=== PATIENT | male | born 1975 | race Caucasian/White ===

== ENCOUNTER 2021-02-01 10:02 | Inpatient (IN) ==
[2021-02-01 10:10] VITALS: BMI 36.9
[2021-02-01] MEDS ORDERED: NS 1,000 ML IV 1,000 ML IV ONE ×2 (10:16→12:09)
[2021-02-01] MEDS ORDERED: NovoLIN R (or HumuLIN R) ONE ×2 (10:20→10:47)
--- NOTE | 2021-02-01 10:34 | DR.GENAD ---
HPI Time Seen Time Seen by Provider: 02/01/21 10:16 PCP Primary Care Physician: Complaint/Symptoms Chief Complaint Doctors Comments: 45 y/o male not feeling well for the past few weeks. Having elevated pulse, BP and glucose. Has been nauseous, no vomiting or diarrhea. Having generalized weakness. Denies pain. Saw an MD 1st time 5 days ago. Was started on Losartan and Metformin. Labs were pending from that visit. Has been compliant with meds. Denies chest pain, headache, dyspnea. No urinary complaints. Chief Complaint:: PT C/O ELEAVTED BLOOD PRESSURE, HEART RATE, & BLOOD SUGAR X1 WEEK.PT ALSO C/O NAUSEA. PT HAS HX OF HTN & DM & HAS TAKEN MEDS THIS AM. COVID-19 Coronavirus risk:travel/contact w/high risk person: No Has patient experienced Coronavirus symptoms: No Nurses notes reviewed Nurses Notes Review: Yes Source History Provided: Patient Mode of Arrival Mode of Arrival: Ambulatory Timing Onset of Chief Complaint: 01/25/21 PMH PMH Past Medical History: Yes Past Medical History: Diabetes and Hypertension Past Surgical History: No Family History History of Family Medical Conditions: Yes Family Medical History: Diabetes Mellitus and Hypertension Travel Risk Coronavirus risk:travel/contact w/high risk person: No Has patient experienced Coronavirus symptoms: No Infectious screening Have you traveled outside the country in the last 6 months?: No Isolation: Standard ROS Review of Systems Constitutional: Weakness Eyes: No Symptoms Reported ENTM: No Symptoms Reported Respiratoy: No Symptoms Reported Cardiovascular: No Symptoms Reported Gastrointestinal/Abdominal: Nausea Genitourinary: No Symptoms Reported Neurological: Weakness Musculoskeletal: No Symptoms Reported Integumentary: No Symptoms Reported Hematologic/Lymphatic: No Symptoms Reported Psychiatric: No Symptoms Reported All Other Systems: Reviewed and Negative PE Vital Signs Vitals: Temperature 98.5 F Pulse Rate [Left Radial] 113 Pulse Rate 111 Respiratory Rate 17 Blood Pressure [Left Arm] 127/60 Blood Pressure 131/76 O2 Sat by Pulse Oximetry 99 General Limitations: No Limitations General Appearance: Alert and In No Apparent Distress Head Head Exam: Normal Inspection, Atraumatic and Normocephalic Eyes Eye exam: Normal Appearance, PERRL and EOMI ENT ENT Exam: Normal Exam Throat Exam: Normal Inspection Neck Neck Exam: Normal Inspection and Full ROM Chest Chest Inspection: Normal Inspection Respiratory Respiratory Exam: Normal Lung Sounds Bilat; negative Accessory Muscle Use and Respiratory Distress Respiratory Exam: Bilateral: Clear to Auscultation Cardiovascular Cardiovascular Exam: Regular Rate, Normal Rhythm and Normal Heart Sounds Abdominal Exam Abdominal Exam: Normal Inspection, Normal Bowel Sounds and Soft; negative Tenderness Extremities Extremities Exam: Normal Inspection and Full ROM; negative Tenderness and Edema Back Back Exam: Normal Inspection Neurologic Neurological Exam: Alert, Oriented X3 and CN II-XII Intact; negative Motor Sensory Deficit Psychiatric Psychiatric Exam: Normal Affect Skin Skin Exam: Warm and Dry MDM Differential Diagnosis Differential Diagnosis: dehydration, electrolyte abnormalities, DKA, HHNK, SVT COURSE Treatment Treatment: 45 y/o male, ill past week. Pulse, BP and glucose elevated. Diagnosed with HTN and DM 5 days ago. No obvious cause for dehydration. Pt given IV fluids. Bedside glucose 543. Given regular insulin, 8 U IV. 1239 - CBC acceptable. CMP show low bicarb at 12.3. ABG obtained, pH low at 7.23, pCO2 24. Urine spilling 3+ glucose, 4+ ketones. Clinically with DKA. Given additional IV fluids, recommend admission. Discussed with Dr Johnson, will admit and place on an insulin drip. ROR Labs Reviewed Laboratory Results Reviewed?: Yes Result Diagrams: 02/01/21 10:26 02/01/21 10:26 Laboratory: WBC 11.7 X10^3/uL (3.6-10.0) H 02/01/21 10:26 RBC 6.11 X10^6/uL (4.7-6.0) H 02/01/21 10:26 Hgb 17.3 g/dL (13.5-18.0) 02/01/21 10:26 Hct 52.1 % (42.0-54.0) 02/01/21 10:26 MCV 85.3 fL (80.0-100.0) 02/01/21 10:26 MCH 28.3 pg (27.0-34.0) 02/01/21 10:26 MCHC 33.1 g/dL (33.0-35.0) 02/01/21 10:26 RDW 17.0 % (11.6-16.5) H 02/01/21 10:26 Plt Count 266 X10^3/uL (150.0-450.0) 02/01/21 10:26 MPV 9.6 fL (7.4-11.0) 02/01/21 10: Neut % (Auto) 77.4 % (42.0-75.0) H 02/01/21 10:26 Lymph % (Auto) 15.0 % (21.0-51.0) L 02/01/21 10:26 [place] % (Auto) 7.1 % (0.0-13.0) 02/01/21 10:26 Eos % (Auto) 0.1 % (0.9-2.9) L 02/01/21 10: Baso % (Auto) 0.4 % (0.2-1.0) 02/01/21 10: Neut # (Auto) 9.0 x10^3/uL (2.2-4.8) H 02/01/21 10: Lymph # (Auto) 1.8 X10^3/uL (1.3-2.9) 02/01/21 10: [place] # (Auto) 0.8 x10^3/uL (0.3-0.8) 02/01/21 10: Eos # (Auto) 0.0 x10^3/uL (0.0-0.2) 02/01/21 10:26 Baso # (Auto) 0.0 X10^3/uL (0.0-0.1) 02/01/21 10: Absolute Nucleated RBC 0.1 /100WBC 02/01/21 10:26 Sample Site Rr 02/01/21 11:39 ABG pH 7.230 (7.35-7.45) L 02/01/21 11:39 ABG pCO2 24.0 mmHg (35.0-45.0) L 02/01/21 11:39 ABG pO2 110.0 mmHg (80.0-100.0) H 02/01/21 11:39 ABG HCO3 10.1 mmol/L (22-26) L* 02/01/21 11:39 ABG O2 Saturation 97.0 % (90-100) 02/01/21 11:39 ABG Base Excess -15.7 mmol/L (-2.0-2.0) L 02/01/21 11:39 Chato Test Pos 02/01/21 11:39 A-a Gradient 10.0 mmHg 02/01/21 11:39 FiO2 21.0 02/01/21 11:39 Blood Gas Comments Sandhya well cb 02/01/21 11:39 Sodium 143 mmol/L (136-145) 02/01/21 10:26 Corrected Sodium 154 mmol/L (136-145) H 02/01/21 10:26 Potassium 4.4 mmol/L (3.5-5.1) 02/01/21 10:26 Chloride 107 mmol/L (98-107) 02/01/21 10:26 Carbon Dioxide 12.3 mmol/L (21-32) L* 02/01/21 10:26 BUN 16 mg/dL (7-18) 02/01/21 10:26 Creatinine 1.54 mg/dL (0.70-1.30) H 02/01/21 10:26 Est GFR (MDRD) Af Amer > 60 (>60) 02/01/21 10:26 Est GFR (MDRD) Non-Af 52 (>60) L 02/01/21 10:26 Glucose 563 mg/dL (65-99) H* 02/01/21 10:26 POC Glucose (mg/dL) 543 mg/dL (65-99) H* 02/01/21 10:30 Calcium 10.1 mg/dL (8.5-10.1) 02/01/21 10:26 Corrected Calcium TNP 02/01/21 10:26 Total Bilirubin 0.50 mg/dL (0.2-1.0) 02/01/21 10:26 AST < 6 Units/L (15-37) L 02/01/21 10:26 ALT 13 Units/L (12-78) 02/01/21 10:26 Alkaline Phosphatase 100 Units/L (46-116) 02/01/21 10:26 Creatine Kinase 53 Units/L (39-308) 02/01/21 10:26 CK-MB (CK-2) < 1.0 ng/mL (0-4.0) 02/01/21 10:26 CK/CKMB % Calc 1.9 % (<4) 02/01/21 10:26 Troponin I < 0.02 ng/mL (0-1.5) 02/01/21 10:26 Total Protein 8.4 g/dL (6.4-8.2) H 02/01/21 10:26 Albumin 3.9 g/dL (3.4-5.0) 02/01/21 10:26 Globulin 4.5 g/dL (2.5-4.5) 02/01/21 10:26 Albumin/Globulin Ratio 0.9 Ratio (1.1-2.1) L 02/01/21 10:26 Specimen Type Clean catch urine 02/01/21 11:36 Urine Color Yellow (YELLOW) 02/01/21 11:36 Urine Appearance Hazy (CLEAR) 02/01/21 11:36 Urine pH 6.0 (5.0 - 8.0) 02/01/21 11:36 Ur Specific [place] 1.025 (1.000-1.030) 02/01/21 11:36 Urine Protein 3+ (NEGATIVE) 02/01/21 11:36 Urine Glucose (UA) 4+ (NEGATIVE) 02/01/21 11:36 Urine Ketones 4+ (NEGATIVE) 02/01/21 11:36 Urine Occult Blood 3+ (NEGATIVE) 02/01/21 11:36 Urine Nitrite Negative (NEGATIVE) 02/01/21 11:36 Urine Bilirubin Negative (NEGATIVE) 02/01/21 11:36 Urine Urobilinogen Normal (NORMAL) 02/01/21 11:36 Ur Leukocyte Esterase Negative (NEGATIVE) 02/01/21 11:36 Urine RBC 0-2 /HPF (0-3) 02/01/21 11:36 Urine WBC 0-2 /HPF (0-5) 02/01/21 11:36 Ur Squamous Epith Cells Few /HPF (NEGATIVE) 02/01/21 11:36 Urine Bacteria Trace /HPF (NEGATIVE) 02/01/21 11:36 Hyaline Casts Few /LPF (NEGATIVE) 02/01/21 11:36 Urine Mucus Few /HPF (NEGATIVE) 02/01/21 11:36 Ur Culture Indicated? No/not indicated 02/01/21 11:36 SARS CoV-2 RNA Rapid MALDONADO Negative (NEGATIVE) 02/01/21 12:20 EKG Rate: 123 [place]: Normal Rhythm: ST Block: None Hypertrophy: None ST: Nonsp Opioid Opioid Risk Tool Age (Pocnho box if 16-45): No History of Preadolescent Sexual Abuse: No Total: 0 Total Score Risk Category: Low Risk Copyright: [place] predicting aberrant behaviors Diagnosis Discharge Problem: DKA (diabetic ketoacidosis) Qualifiers: Diabetes mellitus type: type 2 Diabetes mellitus complication detail: without coma Qualified Code(s): E11.10 - Type 2 diabetes mellitus with ketoacidosis without coma
[2021-02-01] MEDS ORDERED: NovoLIN R (or HumuLIN R) IV ONE (10:35)
[2021-02-01] MEDS ORDERED: NS 1,000 ML IV 1,000 ML ONE ×2 (10:46→12:19)
[2021-02-01 10:50] LABS: BASOPHILS % (AUTO) 0.4 % (0.2-1.0); EOSINOPHILS % (AUTO) 0.1 % (0.9-2.9); HEMATOCRIT 52.1 % (42.0-54.0); HEMOGLOBIN 17.3 g/dL (13.5-18.0); LYMPHOCYTES # (AUTO) 1.8 X10^3/uL (1.3-2.9); MEAN CORPUSCULAR HEMOGLOBIN 28.3 pg (27.0-34.0); MEAN CORPUSCULAR HGB CONC 33.1 g/dL (33.0-35.0); MEAN CORPUSCULAR VOLUME 85.3 fL (80.0-100.0); MEAN PLATELET VOLUME 9.6 fL (7.4-11.0); MONOCYTES # (AUTO) 0.8 x10^3/uL (0.3-0.8); MONOCYTES % (AUTO) 7.1 % (0.0-13.0); NEUTROPHILS % (AUTO) 77.4 % (42.0-75.0); PLATELET COUNT 266 X10^3/uL (150.0-450.0); RED BLOOD COUNT 6.11 X10^6/uL (4.7-6.0); WHITE BLOOD COUNT 11.7 X10^3/uL (3.6-10.0)
[2021-02-01 11:10] LABS: ALANINE AMINOTRANSFERASE 13 Units/L (12-78); ALBUMIN 3.9 g/dL (3.4-5.0); ALKALINE PHOSPHATASE 100 Units/L (46-116); ASPARTATE AMINO TRANSFERASE < 6 Units/L (15-37); BLOOD UREA NITROGEN 16 mg/dL (7-18); CALCIUM 10.1 mg/dL (8.5-10.1); CHLORIDE 107 mmol/L (98-107); CKMB % 1.9 % (<4); CREATINE KINASE 53 Units/L (39-308); CREATINE KINASE MB < 1.0 ng/mL (0-4.0); CREATININE 1.54 mg/dL (0.70-1.30); SODIUM 143 mmol/L (136-145); TOTAL PROTEIN 8.4 g/dL (6.4-8.2); TROPONIN I < 0.02 ng/mL (0-1.5); eGFR NON BLACK RACES 52 (>60)
[2021-02-01 11:21] LABS: COR NA(FOR HYPERGLY) 154 mmol/L (136-145)
[2021-02-01 11:23] LABS: CARBON DIOXIDE 12.3 mmol/L (21-32)
[2021-02-01 11:44] LABS: ABG BASE EXCESS -15.7 mmol/L (-2.0-2.0)
[2021-02-01 11:45] LABS: ABG ALLEN TEST POS; ABG HCO3 10.1 mmol/L (22-26)
[2021-02-01 12:10] LABS: BILIRUBIN,URINE NEGATIVE (NEGATIVE); BLOOD/HEMOGLOBIN,URINE 3+ (NEGATIVE); GLUCOSE, URINE 4+ (NEGATIVE); KETONES,URINE 4+ (NEGATIVE); LEUKOCYTE ESTERASE ,URINE NEGATIVE (NEGATIVE); NITRITES,URINE NEGATIVE (NEGATIVE); PROTEIN,URINE 3+ (NEGATIVE); UROBILINOGEN,URINE NORMAL (NORMAL)
[2021-02-01 12:32] LABS: APPEARANCE,URINE HAZY (CLEAR); COLOR,URINE YELLOW (YELLOW)
[2021-02-01 12:34] LABS: BACTERIA,URINE TRACE /HPF (NEGATIVE); HYALINE CASTS, URINE FEW /LPF (NEGATIVE); MUCUS,URINE FEW /HPF (NEGATIVE); RBC,URINE 0-2 /HPF (0-3); SQUAMOUS EPITHELIAL CELL,UR FEW /HPF (NEGATIVE)
--- NOTE | 2021-02-01 13:33 | RAD ---
HISTORYTACHYCARDIASTUDYCHEST, 1 VIEWCOMPARISONNoneTECHNIQUEPortable chest radiographFINDINGSHeart size and mediastinal contours are normal. Lungs are clear as are the pleural spaces. No free air or pneumothorax. No acute bony abonormality.IMPRESSIONNo acute radiographic abnormalities of the chestElectronically signed by: MG MENA (Feb 01, 2021 13:31:47)
[2021-02-01] MEDS: MYXREDLIN 100 UNIT/100 ML BAG 100 UNIT/100 ML PLAST..BAG IV PRN (14:07)
[2021-02-01] MEDS: NS 1,000 ML IV 1,000 ML IV SCH ×2 (14:15→23:15)
[2021-02-01] MEDS: SNACK - Diabetic Appropriate PO SCH (20:35)
[2021-02-02] MEDS: NS 1,000 ML IV 1,000 ML IV SCH ×2 (03:00→09:43)
[2021-02-02 05:50] LABS: BASOPHILS # (AUTO) 0.1 X10^3/uL (0.0-0.1); BASOPHILS % (AUTO) 0.6 % (0.2-1.0); EOSINOPHILS # (AUTO) 0.2 x10^3/uL (0.0-0.2); EOSINOPHILS % (AUTO) 2.3 % (0.9-2.9); HEMATOCRIT 41.3 % (42.0-54.0); MEAN CORPUSCULAR HEMOGLOBIN 28.2 pg (27.0-34.0); MEAN CORPUSCULAR HGB CONC 33.9 g/dL (33.0-35.0); MEAN CORPUSCULAR VOLUME 82.9 fL (80.0-100.0); MONOCYTES # (AUTO) 0.7 x10^3/uL (0.3-0.8); MONOCYTES % (AUTO) 8.8 % (0.0-13.0); NEUTROPHILS # (AUTO) 5.2 x10^3/uL (2.2-4.8); NEUTROPHILS % (AUTO) 63.3 % (42.0-75.0); PLATELET COUNT 201 X10^3/uL (150.0-450.0); RED BLOOD COUNT 4.98 X10^6/uL (4.7-6.0); RED CELL DISTRIBUTION WIDTH 16.4 % (11.6-16.5); WHITE BLOOD COUNT 8.2 X10^3/uL (3.6-10.0)
[2021-02-02 06:15] LABS: ALANINE AMINOTRANSFERASE 10 Units/L (12-78); ALBUMIN 2.8 g/dL (3.4-5.0); ALKALINE PHOSPHATASE 69 Units/L (46-116); ASPARTATE AMINO TRANSFERASE < 6 Units/L (15-37); BLOOD UREA NITROGEN 13 mg/dL (7-18); CALCIUM 8.6 mg/dL (8.5-10.1); CARBON DIOXIDE 23.7 mmol/L (21-32); CHLORIDE 112 mmol/L (98-107); COR CA(FOR HYPOALB) 9.6 mg/dL (8.5-10.1); COR NA(FOR HYPERGLY) 149 mmol/L (136-145); CREATININE 1.11 mg/dL (0.70-1.30); SODIUM 146 mmol/L (136-145); TOTAL PROTEIN 6.1 g/dL (6.4-8.2); eGFR NON BLACK RACES > 60 (>60)
[2021-02-02] MEDS ORDERED: MAGNESIUM SULFATE 1 GRAM/100 mL PREMIX 1 G/100 ML BAG IV PRN (06:32)
[2021-02-02] MEDS ORDERED: POTASSIUM CHL 40 MEQ/NS 0.45% 500 ML IV PRN (06:32)
[2021-02-02] MEDS ORDERED: KLOR-CON PO PRN (06:32)
[2021-02-02] MEDS ORDERED: POTASSIUM CHL 60 MEQ/NS 0.45% 500 ML IV PRN (06:32)
[2021-02-02] MEDS ORDERED: POTASSIUM CHLORIDE LIQ 20 MEQ UDC PO PRN (06:32)
[2021-02-02] MEDS ORDERED: MICRO K EXTEN CAP 10 MEQ PO PRN (06:32)
[2021-02-02] MEDS ORDERED: K-RIDER 10 MEQ/NS 100 ML 10 MEQ/100 ML BAG IV PRN (06:32)
[2021-02-02] MEDS: K-DUR TAB 20 MEQ PO PRN (07:01)
[2021-02-02] MEDS: MYXREDLIN 100 UNIT/100 ML BAG 100 UNIT/100 ML PLAST..BAG IV PRN (09:26)
[2021-02-02] MEDS: ZOFRAN INJ 4 MG VIAL IVP PRN (09:42)
[2021-02-02] MEDS: LANTUS SC SCH (10:56)
[2021-02-02] MEDS ORDERED: NS + KCL 40 MEQ/L 1,000 ML IV SCH (11:00)
[2021-02-02] MEDS: NovoLIN R (or HumuLIN R) SUBCUT PRN ×3 (12:09→20:38)
[2021-02-02] MEDS: NS 1/2 + KCL 20 MEQ/L 1,000 ML IV SCH (13:45)
[2021-02-02] MEDS ORDERED: SNACK - Diabetic Appropriate PO SCH (20:00)
[2021-02-02] MEDS: SNACK - Diabetic Appropriate PO SCH (20:27)
--- NOTE | 2021-02-03 00:05 | DR.H&P ---
H&P - History & Physical for Day of: H&P Date: 02/01/21 - Chief Complaint Chief Complaint: Nausea, weakness - History of Present Illness History of Present Illness: Patient is a 45 year AAM who is being admitted due to DKA. Patient reports gnerally not feeling well, weakness, fatigue, and nausea. Denies vomiting, diarrhea. No change in bowel or bladder. Denies chest pain, SOB. States he saw his PCP for the first time due to these symptoms, had labs drawn, started new med for DM ad BP, and has not been called about lab results. States he was told he was a diabetic due to glucose in urine and elevated FSBS reading in office but has not heard any other info. PCP in [place]. No other PMH. - Past Medical History Past Medical History: Hypertension, Diabetes - Family History Family Medical History: Diabetes Mellitus, Cancer, MS, Hypertension - Social History Does patient currently use any type of tobacco product: No Have you used tobacco products in the last 12 months: No Type of Tobacco Use: None Does any household member use tobacco: No Alcohol Use: None Drug Use: None - Medications Home Medications: No Known Drug Allergies Allergy (Verified 02/01/21 10:09) CONTINUE taking the following medications losartan [Cozaar] 50 mg PO DAILY 02/01/21 [History] metformin 500 mg PO BID 02/01/21 [History] - Review of Systems Constitutional: See HPI Eyes: See HPI ENT: See HPI Respiratory: See HPI Cardiovascular: See HPI Gastrointestinal: See HPI Genitourinary: See HPI Musculoskeletal: See HPI Skin: See HPI Neurological: See HPI - Physical Exam Vital Signs: Temperature 98.1 F Pulse Rate [Left Radial] 113 Pulse Rate 65 Respiratory Rate 20 Blood Pressure [Left Arm] 127/60 Blood Pressure 135/72 O2 Sat by Pulse Oximetry 95 Oriented: Normal, Time, Person, Place Eyes: Normal Ear: Normal Nose: Normal Throat: Normal Respiratory: Clear Throughout Cardiovascular: Normal, Tachycardia : Normal Auscultation: Bowel Sounds: Normal Palpation: Normal Tenderness: Normal Skin: Normal Musculoskeletal: Normal Psychiatric: Normal Mood Description: Calm Affect: Normal Speech Pattern: Clear, Appropriate - Assessment/Plan (1) Nausea Status: Acute Plan: Nausea control. IV fluids (2) Hypertension Status: Acute (3) DKA (diabetic ketoacidosis) Qualifiers: Diabetes mellitus type: type 2 Diabetes mellitus complication detail: without coma Qualified Code(s): E11.10 - Type 2 diabetes mellitus with ketoacidosis without coma Status: Acute Plan: Insulin drip. Monitor labs. FSBS. IV fluids. IV abx. Cultures pending. See EMR - Allergies Allergies/Adverse Reactions: Allergies Allergy/AdvReac Type Severity Reaction Status Date / Time No Known Drug Allergies Allergy Verified 02/01/21 10:09
--- NOTE | 2021-02-03 00:13 | PCM.PROG ---
Progress Note - Progress Note for Day of Date of Exam: 02/02/21 - Subjective Subjective: Patient is a 45 year old AAM who was admitted due to DKA. Condition improved. Insulin drip has been stopped.Long acting insulin and sliding scale insulin started. Patient reports improvement in condition. Tolerating food and fluids. No other concerns a tpresent. Education provided regarding new diabetes. - Past Medical Family Social History Past Med/Fam/Surg Hx: No changes since H&P Allergies: Allergies No Known Drug Allergies Allergy (Verified 02/01/21 10:09) - Review of Systems ROS: No change since H&P - Vital Signs and I&O's Vital Signs: Temperature 98.1 F Pulse Rate [Left Radial] 113 Pulse Rate 65 Respiratory Rate 20 Blood Pressure [Left Arm] 127/60 Blood Pressure 135/72 O2 Sat by Pulse Oximetry 95 Intake and Output: Intake & Output 01/31/21 02/01/21 02/02/21 02/03/21 23:59 23:59 23:59 23:59 Intake Total 2300 / 2300 3908 / 3908 Output Total 400 / 400 1427 / 1427 Balance 1900 / 1900 2481 / 2481 - Physical Exam Oriented: Normal, Time, Person, Place Eyes: Normal Ear: Normal Nose: Normal Throat: Normal Respiratory: Normal Cardiovascular: Normal : Normal Auscultation: Bowel Sounds: Normal Palpation: Normal Tenderness: Normal Skin: Normal Musculoskeletal: Normal Psychiatric: Normal Mood Description: Calm Affect: Normal Speech Pattern: Clear, Appropriate - Laboratory and Diagnostics Result Diagrams: 02/02/21 04:51 02/02/21 16:12 Labs: Laboratory WBC 8.2 X10^3/uL (3.6-10.0) 02/02/21 04:51 RBC 4.98 X10^6/uL (4.7-6.0) 02/02/21 04:51 Hgb 14.0 g/dL (13.5-18.0) D 02/02/21 04:51 Hct 41.3 % (42.0-54.0) L 02/02/21 04:51 MCV 82.9 fL (80.0-100.0) 02/02/21 04:51 MCH 28.2 pg (27.0-34.0) 02/02/21 04:51 MCHC 33.9 g/dL (33.0-35.0) 02/02/21 04:51 RDW 16.4 % (11.6-16.5) 02/02/21 04:51 Plt Count 201 X10^3/uL (150.0-450.0) 02/02/21 04:51 MPV 9.0 fL (7.4-11.0) 02/02/21 04:51 Neut % (Auto) 63.3 % (42.0-75.0) 02/02/21 04:51 Lymph % (Auto) 25.0 % (21.0-51.0) 02/02/21 04:51 [place] % (Auto) 8.8 % (0.0-13.0) 02/02/21 04:51 Eos % (Auto) 2.3 % (0.9-2.9) 02/02/21 04:51 Baso % (Auto) 0.6 % (0.2-1.0) 02/02/21 04:51 Neut # (Auto) 5.2 x10^3/uL (2.2-4.8) H 02/02/21 04:51 Lymph # (Auto) 2.0 X10^3/uL (1.3-2.9) 02/02/21 04:51 [place] # (Auto) 0.7 x10^3/uL (0.3-0.8) 02/02/21 04:51 Eos # (Auto) 0.2 x10^3/uL (0.0-0.2) 02/02/21 04:51 Baso # (Auto) 0.1 X10^3/uL (0.0-0.1) 02/02/21 04:51 Absolute Nucleated RBC 0.2 /100WBC 02/02/21 04:51 Sample Site Rr 02/01/21 11:39 ABG pH 7.230 (7.35-7.45) L 02/01/21 11:39 ABG pCO2 24.0 mmHg (35.0-45.0) L 02/01/21 11:39 ABG pO2 110.0 mmHg (80.0-100.0) H 02/01/21 11:39 ABG HCO3 10.1 mmol/L (22-26) L* 02/01/21 11:39 ABG O2 Saturation 97.0 % (90-100) 02/01/21 11:39 ABG Base Excess -15.7 mmol/L (-2.0-2.0) L 02/01/21 11:39 [place] Test Pos 02/01/21 11:39 A-a Gradient 10.0 mmHg 02/01/21 11:39 FiO2 21.0 02/01/21 11:39 Blood Gas Comments Sandhya well cb 02/01/21 11:39 Sodium 146 mmol/L (136-145) H 02/02/21 04:51 Corrected Sodium 149 mmol/L (136-145) H 02/02/21 04:51 Potassium 3.3 mmol/L (3.5-5.1) L 02/02/21 10:00 Chloride 112 mmol/L (98-107) H 02/02/21 04:51 Carbon Dioxide 23.7 mmol/L (21-32) 02/02/21 04:51 BUN 13 mg/dL (7-18) 02/02/21 04:51 Creatinine 1.11 mg/dL (0.70-1.30) 02/02/21 04:51 Est GFR (MDRD) Af Amer > 60 (>60) 02/02/21 04:51 Est GFR (MDRD) Non-Af > 60 (>60) 02/02/21 04:51 Glucose 446 mg/dL (65-99) H 02/02/21 16:12 POC Glucose (mg/dL) 381 mg/dL (65-99) H 02/02/21 20:18 Calcium 8.6 mg/dL (8.5-10.1) 02/02/21 04:51 Corrected Calcium 9.6 mg/dL (8.5-10.1) 02/02/21 04:51 Magnesium 2.2 mg/dL (1.7-2.9) 02/02/21 04:51 Total Bilirubin 0.50 mg/dL (0.2-1.0) 02/02/21 04:51 AST < 6 Units/L (15-37) L 02/02/21 04:51 ALT 10 Units/L (12-78) L 02/02/21 04:51 Alkaline Phosphatase 69 Units/L (46-116) 02/02/21 04:51 Creatine Kinase 53 Units/L (39-308) 02/01/21 10:26 CK-MB (CK-2) < 1.0 ng/mL (0-4.0) 02/01/21 10:26 CK/CKMB % Calc 1.9 % (<4) 02/01/21 10:26 Troponin I < 0.02 ng/mL (0-1.5) 02/01/21 10:26 Total Protein 6.1 g/dL (6.4-8.2) L 02/02/21 04:51 Albumin 2.8 g/dL (3.4-5.0) L 02/02/21 04:51 Globulin 3.3 g/dL (2.5-4.5) 02/02/21 04:51 Albumin/Globulin Ratio 0.8 Ratio (1.1-2.1) L 02/02/21 04:51 Specimen Type Clean catch urine 02/01/21 11:36 Urine Color Yellow (YELLOW) 02/01/21 11:36 Urine Appearance Hazy (CLEAR) 02/01/21 11:36 Urine pH 6.0 (5.0 - 8.0) 02/01/21 11:36 Ur Specific [place] 1.025 (1.000-1.030) 02/01/21 11:36 Urine Protein 3+ (NEGATIVE) 02/01/21 11:36 Urine Glucose (UA) 4+ (NEGATIVE) 02/01/21 11:36 Urine Ketones 4+ (NEGATIVE) 02/01/21 11:36 Urine Occult Blood 3+ (NEGATIVE) 02/01/21 11:36 Urine Nitrite Negative (NEGATIVE) 02/01/21 11:36 Urine Bilirubin Negative (NEGATIVE) 02/01/21 11:36 Urine Urobilinogen Normal (NORMAL) 02/01/21 11:36 Ur Leukocyte Esterase Negative (NEGATIVE) 02/01/21 11:36 Urine RBC 0-2 /HPF (0-3) 02/01/21 11:36 Urine WBC 0-2 /HPF (0-5) 02/01/21 11:36 Ur Squamous Epith Cells Few /HPF (NEGATIVE) 02/01/21 11:36 Urine Bacteria Trace /HPF (NEGATIVE) 02/01/21 11:36 Hyaline Casts Few /LPF (NEGATIVE) 02/01/21 11:36 Urine Mucus Few /HPF (NEGATIVE) 02/01/21 11:36 Ur Culture Indicated? No/not indicated 02/01/21 11:36 [place]et[place], Semi-Quant Small (NEGATIVE) H 02/02/21 10:00 SARS CoV-2 RNA Rapid MALDONADO Negative (NEGATIVE) 02/01/21 12:20 - Plan (1) Nausea Status: Acute Plan: Nausea control. IV fluids (2) Hypertension Status: Acute (3) DKA (diabetic ketoacidosis) Status: Acute Qualifiers: Diabetes mellitus type: type 2 Diabetes mellitus complication detail: without coma Qualified Code(s): E11.10 - Type 2 diabetes mellitus with ketoacidosis without coma Plan: Down grade to medical services. Monitor labs. FSBS. IV fluids. IV abx. Cultures pending. See EMR
[2021-02-03] MEDS: NS 1/2 + KCL 20 MEQ/L 1,000 ML IV SCH ×2 (01:28→14:53)
[2021-02-03] MEDS: ZOFRAN INJ 4 MG VIAL IVP PRN (01:37)
[2021-02-03] MEDS: NovoLIN R (or HumuLIN R) SUBCUT PRN ×2 (06:04→12:49)
[2021-02-03 06:06] LABS: BASOPHILS % (AUTO) 0.5 % (0.2-1.0); EOSINOPHILS # (AUTO) 0.2 x10^3/uL (0.0-0.2); EOSINOPHILS % (AUTO) 3.5 % (0.9-2.9); HEMATOCRIT 39.3 % (42.0-54.0); HEMOGLOBIN 13.5 g/dL (13.5-18.0); LYMPHOCYTES # (AUTO) 2.3 X10^3/uL (1.3-2.9); LYMPHOCYTES % (AUTO) 32.7 % (21.0-51.0); MEAN CORPUSCULAR HEMOGLOBIN 28.5 pg (27.0-34.0); MEAN CORPUSCULAR HGB CONC 34.4 g/dL (33.0-35.0); MEAN CORPUSCULAR VOLUME 82.9 fL (80.0-100.0); MEAN PLATELET VOLUME 9.2 fL (7.4-11.0); MONOCYTES # (AUTO) 0.5 x10^3/uL (0.3-0.8); MONOCYTES % (AUTO) 7.3 % (0.0-13.0); NEUTROPHILS # (AUTO) 3.9 x10^3/uL (2.2-4.8); PLATELET COUNT 163 X10^3/uL (150.0-450.0); RED BLOOD COUNT 4.74 X10^6/uL (4.7-6.0); RED CELL DISTRIBUTION WIDTH 15.8 % (11.6-16.5)
[2021-02-03 06:21] LABS: ALANINE AMINOTRANSFERASE 11 Units/L (12-78); ALBUMIN 2.7 g/dL (3.4-5.0); ALKALINE PHOSPHATASE 72 Units/L (46-116); ASPARTATE AMINO TRANSFERASE 8 Units/L (15-37); BLOOD UREA NITROGEN 7 mg/dL (7-18); CALCIUM 8.2 mg/dL (8.5-10.1); CARBON DIOXIDE 26.5 mmol/L (21-32); CHLORIDE 103 mmol/L (98-107); COR CA(FOR HYPOALB) 9.2 mg/dL (8.5-10.1); COR NA(FOR HYPERGLY) 143 mmol/L (136-145); CREATININE 0.94 mg/dL (0.70-1.30); SODIUM 139 mmol/L (136-145); TOTAL PROTEIN 5.8 g/dL (6.4-8.2); eGFR NON BLACK RACES > 60 (>60)
[2021-02-03] MEDS: K-DUR TAB 20 MEQ PO PRN (06:30)
[2021-02-03] MEDS ORDERED: COZAAR PO SCH (09:00)
[2021-02-03] MEDS ORDERED: GLUCOPHAGE PO SCH (09:00)
[2021-02-03] MEDS ORDERED: GLUCOPHAGE ONE (10:05)
[2021-02-03] MEDS: LANTUS SC SCH (10:13)
[2021-02-03 10:41] VITALS: BP 136/74
[2021-02-03] MEDS ORDERED: MILK OF MAGNESIA PO SCH (11:00)
[2021-02-03] MEDS ORDERED: COLACE CAP 100 MG PO SCH (21:00)
== END 2021-02-03 15:50 | disposition home or self-care (01) | DRG 639 ==
LOC: ER 10:02 → ICU 12:55 → MED/SURG 02-02 13:45
PROVIDERS: ADMIT Internal Medicine; ATTEND Internal Medicine
DX: Z20.822 Contact with and (suspected) exposure to COVID-19; E11.65 Type 2 diabetes mellitus with hyperglycemia; R53.1 Weakness; I10 Essential (primary) hypertension; E11.10 Type 2 diabetes mellitus with ketoacidosis without coma

== ENCOUNTER 2023-03-21 11:00 | Inpatient (IN) ==
--- NOTE | 2023-03-21 11:25 | DR.URIAD ---
HPI Time Seen Time Seen by Provider: 03/21/23 11:24 PCP Primary Care Physician: Mitchell Complaint Chief Complaint Doctors Comments: 47-year-old male presents for evaluation. Became ill last week, started with GI bug, that improved. Developed a cough last Monday, approximately 6 days ago. Was having generalized muscle aches, chills, low-grade temp. symptoms overall has improved except for the cough, is non productive. Having slight chest discomfort, which she feels is from coughing. Any worsening shortness of breath. Patient is a diabetic, blood sugar this a.m. 109. Has had slight nausea, no vomiting or diarrhea. Has normal urinary function. No leg pain, no leg swelling. Chief Complaint:: Patient states that he has been sick for roughly a week now. It started with body aches, fever, loss of taste, and coughing. It has progressed, and now the body aches and loss of tast are gone, but he still has a cough. He states that he has had shorness of breath starting about 2 days ago. His O2 saturation in triage is 84% on room air COVID-19 Coronavirus risk:travel/contact w/high risk person: Yes Has patient experienced Coronavirus symptoms: Yes Coronavirus symptoms experienced: Fever, Coughing and Shortness of Breath Reviewed Nurses Notes Reviewed: Yes Source History Provided: Patient Mode of Arrival Mode of Arrival: Ambulatory Timing Onset of Chief Complaint: 03/14/23 PMH PMH Past Medical History: Yes Past Medical History: Diabetes and Hypertension Past Surgical History: No Family History History of Family Medical Conditions: Yes Family Medical History: Diabetes Mellitus, Cancer, [place] and Hypertension Social History Does patient currently use any type of tobacco product: No Have you used tobacco products in the last 12 months: No Type of Tobacco Use: None Does any household member use tobacco: No Alcohol Use: None Do you use any recreational Drugs:: No Lives With: Family Lives Where: Home Travel Risk Coronavirus risk:travel/contact w/high risk person: Yes Has patient experienced Coronavirus symptoms: Yes Coronavirus symptoms experienced: Fever, Coughing and Shortness of Breath Infectious screening In the last 2 months have you had wt loss of >10#?: NO Have you had fever, night sweats or hemotysis?: No Have you traveled outside the country in the last 6 months?: No Isolation: Droplet ROS Review of Systems Constitutional: Chills, Fever and Weakness Eyes: No Symptoms Reported ENTM: Nose Congestion Respiratoy: Non-Productive Cough Cardiovascular: No Symptoms Reported Gastrointestinal/Abdominal: No Symptoms Reported Genitourinary: No Symptoms Reported Neurological: Weakness Musculoskeletal: Muscle Pain Integumentary: No Symptoms Reported Hematologic/Lymphatic: No Symptoms Reported All Other Systems: Reviewed and Negative PE Vital Signs Vitals: Vital Signs Temperature 98.3 F Pulse Rate 126 Pulse Rate 118 Pulse Rate 113 Pulse Rate 113 Pulse Rate 126 Pulse Rate 124 Pulse Rate 127 Pulse Rate 130 Pulse Rate 121 Pulse Rate 117 Pulse Rate 121 Pulse Rate 112 Pulse Rate 114 Pulse Rate 113 Pulse Rate 118 Pulse Rate 123 Pulse Rate 121 Pulse Rate 126 Pulse Rate 128 Pulse Rate 129 Respiratory Rate 43 Respiratory Rate 27 Respiratory Rate 37 Respiratory Rate 36 Respiratory Rate 38 Respiratory Rate 35 Respiratory Rate 34 Respiratory Rate 31 Respiratory Rate 39 Respiratory Rate 29 Respiratory Rate 30 Respiratory Rate 26 Respiratory Rate 27 Respiratory Rate 34 Respiratory Rate 31 Respiratory Rate 33 Respiratory Rate 35 Respiratory Rate 25 Respiratory Rate 34 Respiratory Rate 18 Blood Pressure 190/92 Blood Pressure 202/105 Blood Pressure 199/108 Blood Pressure 187/102 Blood Pressure 187/102 Blood Pressure 164/79 Blood Pressure 187/97 Blood Pressure 183/96 Blood Pressure 176/99 Blood Pressure 166/93 Blood Pressure 177/104 Blood Pressure 180/103 Blood Pressure 145/94 O2 Sat by Pulse Oximetry 98 O2 Sat by Pulse Oximetry 96 O2 Sat by Pulse Oximetry 95 O2 Sat by Pulse Oximetry 95 O2 Sat by Pulse Oximetry 95 O2 Sat by Pulse Oximetry 95 O2 Sat by Pulse Oximetry 96 O2 Sat by Pulse Oximetry 96 O2 Sat by Pulse Oximetry 90 O2 Sat by Pulse Oximetry 90 O2 Sat by Pulse Oximetry 89 O2 Sat by Pulse Oximetry 92 O2 Sat by Pulse Oximetry 91 O2 Sat by Pulse Oximetry 91 O2 Sat by Pulse Oximetry 91 O2 Sat by Pulse Oximetry 91 O2 Sat by Pulse Oximetry 90 O2 Sat by Pulse Oximetry 90 O2 Sat by Pulse Oximetry 89 O2 Sat by Pulse Oximetry 84 General General Appearance: Alert, In No Apparent Distress and Other (Pulse ox in upper 80s on RA. ) Eyes Eye exam: PERRL and EOMI ENT ENT Exam: Normal Oropharynx and Mucous Membranes Moist Neck Neck Exam: Normal Inspection and Full ROM Chest Chest Inspection: Normal Inspection Respiratory Respiratory Exam: Other (Clear BS on L. + rhonchi R base. ); negative Accessory Muscle Use or Respiratory Distress Cardiovascular Cardiovascular Exam: Regular Rate, Normal Rhythm, Tachycardia and Normal Heart Sounds Abdominal Exam Abdominal Exam: Normal Bowel Sounds and Soft; negative Tenderness Extremeties Extremities Exam: Normal Inspection and Full ROM; negative Edema Back Back Exam: Normal Inspection and Full ROM Neurologic Neurological Exam: Alert, Oriented X3 and CN II-XII Intact; negative Motor Sensory Deficit Skin Skin Exam: Warm and Dry COURSE Treatment Treatment: 47 y/o male ill over the past week, having worsening dyspnea. Pulse ox low on arrival. W/u initiated. Patient placed on oxygen, given IV fluids. 1459 -pulse ox was in the upper 80s on arrival, on 2 L nasal cannula is in the low 90s. Chest x-ray showed mild increased bilateral prominent marking, no obvious consolidation. White count was elevated 14,500. Chemistries overall unremarkable. BNP is normal, troponin is normal, lactic acid is only 1.1. COVID respiratory panel was negative. Patient was sent for CTA (D-dimer unable to be run in the lab at this time). CTA showed no obvious pulmonary emboli, does have increased bilateral markings consistent with developing pneumonia, possible atypical pneumonia. Patient was given IV Rocephin prophylactically to start. Will continue this IV and add IV azithromycin. Patient presented to the on-call physician, Dr. Johnson, accepts the admission. [facility] Labs Reviewed Laboratory Results Reviewed?: Yes 03/21/23 11:30 03/21/23 11:30 Laboratory: WBC 14.5 X10^3/uL (3.6-10.0) H 03/21/23 11:30 RBC 5.44 X10^6/uL (4.7-6.0) 03/21/23 11:30 Hgb 14.9 g/dL (13.5-18.0) 03/21/23 11:30 Hct 46.1 % (42.0-54.0) 03/21/23 11:30 MCV 84.7 fL (80.0-100.0) 03/21/23 11:30 MCH 27.3 pg (27.0-34.0) 03/21/23 11: MCHC 32.3 g/dL (33.0-35.0) L 03/21/23 11: RDW 14.6 % (11.6-16.5) 03/21/23 11:30 Plt Count 318 X10^3/uL (150.0-450.0) 03/21/23 11:30 MPV 9.3 fL (7.4-11.0) 03/21/23 11:30 Neut % (Auto) 78.7 % (42.0-75.0) H 03/21/23 11:30 Lymph % (Auto) 13.9 % (21.0-51.0) L 03/21/23 11:30 Howard % (Auto) 7.1 % (0.0-13.0) 03/21/23 11:30 Eos % (Auto) 0.1 % (0.9-2.9) L 03/21/23 11:30 Baso % (Auto) 0.2 % (0.2-1.0) 03/21/23 11:30 Neut # (Auto) 11.4 x10^3/uL (2.2-4.8) H 03/21/23 11:30 Lymph # (Auto) 2.0 X10^3/uL (1.3-2.9) 03/21/23 11:30 Howard # (Auto) 1.0 x10^3/uL (0.3-0.8) H 03/21/23 11:30 Eos # (Auto) 0.0 x10^3/uL (0.0-0.2) 03/21/23 11:30 Baso # (Auto) 0.0 X10^3/uL (0.0-0.1) 03/21/23 11:30 Absolute Nucleated RBC 0.0 /100WBC 03/21/23 11:30 Sodium 134 mmol/L (136-145) L 03/21/23 11:30 Corrected Sodium 135 mmol/L (136-145) L 03/21/23 11:30 Potassium 3.9 mmol/L (3.5-5.1) 03/21/23 11:30 Chloride 98 mmol/L (98-107) 03/21/23 11:30 Carbon Dioxide 28.8 mmol/L (21-32) 03/21/23 11:30 BUN 10 mg/dL (7-18) 03/21/23 11:30 Creatinine 0.88 mg/dL (0.70-1.30) 03/21/23 11:30 Est GFR (MDRD) Af Amer > 60 (>60) 03/21/23 11:30 Est GFR (MDRD) Non-Af > 60 (>60) 03/21/23 11:30 Glucose 127 mg/dL (65-99) H 03/21/23 11:30 Lactic Acid 1.1 mmol/L (0.4-2.0) 03/21/23 11:30 Calcium 8.9 mg/dL (8.5-10.1) 03/21/23 11:30 Corrected Calcium 9.9 mg/dL (8.5-10.1) 03/21/23 11:30 Total Bilirubin 0.80 mg/dL (0.2-1.0) 03/21/23 11:30 AST 13 Units/L (15-37) L 03/21/23 11:30 ALT 17 Units/L (12-78) 03/21/23 11:30 Alkaline Phosphatase 77 Units/L (46-116) 03/21/23 11:30 Troponin I High Sens 5.0 ng/L (4.0-60.0) 03/21/23 11:30 B-Natriuretic Peptide 9.2 pg/mL (0-79) 03/21/23 11:30 Total Protein 8.4 g/dL (6.4-8.2) H 03/21/23 11:30 Albumin 2.8 g/dL (3.4-5.0) L 03/21/23 11:30 Globulin 5.6 g/dL (2.5-4.5) H 03/21/23 11:30 Albumin/Globulin Ratio 0.5 Ratio (1.1-2.1) L 03/21/23 11:30 Lipase 19 Units/L (16-77) 03/21/23 11:30 Specimen Type Clean catch urine 03/21/23 13:43 Urine Color Dark yellow (YELLOW) 03/21/23 13:43 Urine Appearance Clear (CLEAR) 03/21/23 13:43 Urine pH 6.0 (5.0 - 8.0) 03/21/23 13:43 Ur Specific [place] 1.025 (1.000-1.030) 03/21/23 13:43 Urine Protein 3+ (NEGATIVE) 03/21/23 13:43 Urine Glucose (UA) Negative (NEGATIVE) 03/21/23 13:43 Urine Ketones 3+ (NEGATIVE) 03/21/23 13:43 Urine Blood 2+ (NEGATIVE) 03/21/23 13:43 Urine Nitrite Negative (NEGATIVE) 03/21/23 13:43 Urine Bilirubin Negative (NEGATIVE) 03/21/23 13:43 Urine Urobilinogen 2+ (NORMAL) 03/21/23 13:43 Ur Leukocyte Esterase Negative (NEGATIVE) 03/21/23 13:43 Urine RBC 0-2 /HPF (0-3) 03/21/23 13:43 Urine WBC 0-2 /HPF (0-5) 03/21/23 13:43 Ur Squamous Epith Cells Few /HPF (NEGATIVE) 03/21/23 13:43 Urine Bacteria 1+ /HPF (NEGATIVE) 03/21/23 13:43 Urine Mucus Few /HPF (NEGATIVE) 03/21/23 13:43 Ur Culture Indicated? No/not indicated 03/21/23 13:43 SARS-CoV-2 (PCR) Negative (NEGATIVE) 03/21/23 11:34 Influenza Type A (PCR) Negative (NEGATIVE) 03/21/23 11:34 Influenza Type B (PCR) Negative (NEGATIVE) 03/21/23 11:34 RSV (PCR) Negative (NEGATIVE) 03/21/23 11:34 see comments under "Course" XRAY XRAY Interpreted by: Both X-ray Results: EXAM: AP chest HISTORY: Cough short of breath COMPARISON: 02/01/2021 FINDINGS: The heart is slightly larger than before, now upper normal in transverse dimension. Interval increase in mild interstitial prominence in both lower lobes without airspace consolidation or pleural fluid. IMPRESSION: Slight nonspecific increase in bibasal interstitial prominence may be congestive or inflammatory. Follow-up suggested as clinically appropriate. THIS IS AN ELECTRONICALLY VERIFIED FINAL REPORT 03/21/2023 12:08 PM - Electronically signed by Talib David MD EXAM: CT PULMONARY ANGIOGRAM CHEST WITH CONTRAST (PE PROTOCOL) HISTORY: DYSPNEA, LOW PULSE OX; COMPARISON: None. TECHNIQUE: Axial CT images were obtained through the chest after the intravenous admi nistration of contrast. Coronal reformatted images were included. Maximum intensity projection (MIP) images were performed per pulmonary angiogram protocol. Informed written consent was obtained prior to contrast administration. All CT scans at this facility use dose modulation, iterative reconstruction, and/or weight based dosing when appropriate to reduce radiation dose to as low as reasonably achievable. FINDINGS: HEART AND PULMONARY ARTERIES: Bolus timing is suboptimal. No large pulmonary emboli are detected at this time. SUPPORT DEVICES: None LYMPH NODES: No pathologically enlarged nodes. LUNGS AND PLEURA: Lungs show fairly extensive airspace disease predominant in the lung bases but also affecting the upper lobes with florid tree-in-bud nodularity. AIRWAYS: Normal UPPER ABDOMEN: Normal BONES: Normal IMPRESSION: Multifocal pneumonia suspected. Consolidation is worst in the lower lobes with a patchy airspace disease in the upper lobes bilaterally with associated tree-in-bud nodularity favoring infectious process. Atypical organisms are considered. No clear evidence of large pulmonary emboli. Bullous timing is suboptimal for evaluation of the smaller segmental branches. THIS IS AN ELECTRONICALLY VERIFIED FINAL REPORT 03/21/2023 2:27 PM - Electronically signed by Hernandez Vidales MD Opioid Opioid Risk Tool Age (Poncho box if 16-45): No History of Preadolescent Sexual Abuse: No Total: 0 Total Score Risk Category: Low Risk Copyright: [place] predicting aberrant behaviors Discharge Plan Diagnosis Discharge Problem: Hypoxia, Bilateral pneumonia Discharge Plan Patient Disposition: ADMITTED INPATIENT Condition: Stable Orders to Discharge Patient Discharge Orders: Transfer (Routine); Ordered 03/21/23 Ordered By: Jace Beckham
[2023-03-21] MEDS ORDERED: NS 1,000 ML IV 1,000 ML IV ONE ×2 (11:26→15:27)
[2023-03-21] MEDS ORDERED: NS 1,000 ML IV 1,000 ML ONE ×2 (11:41→15:27)
[2023-03-21 12:05] LABS: BASOPHILS % (AUTO) 0.2 % (0.2-1.0); EOSINOPHILS % (AUTO) 0.1 % (0.9-2.9); HEMATOCRIT 46.1 % (42.0-54.0); HEMOGLOBIN 14.9 g/dL (13.5-18.0); LYMPHOCYTES % (AUTO) 13.9 % (21.0-51.0); MEAN CORPUSCULAR HEMOGLOBIN 27.3 pg (27.0-34.0); MEAN CORPUSCULAR HGB CONC 32.3 g/dL (33.0-35.0); MEAN CORPUSCULAR VOLUME 84.7 fL (80.0-100.0); MEAN PLATELET VOLUME 9.3 fL (7.4-11.0); MONOCYTES % (AUTO) 7.1 % (0.0-13.0); NEUTROPHILS # (AUTO) 11.4 x10^3/uL (2.2-4.8); NEUTROPHILS % (AUTO) 78.7 % (42.0-75.0); PLATELET COUNT 318 X10^3/uL (150.0-450.0); RED BLOOD COUNT 5.44 X10^6/uL (4.7-6.0); RED CELL DISTRIBUTION WIDTH 14.6 % (11.6-16.5); WHITE BLOOD COUNT 14.5 X10^3/uL (3.6-10.0)
--- NOTE | 2023-03-21 12:12 | RAD ---
EXAM:AP chestHISTORY:Cough short of breathCOMPARISON:02/01/2021FINDINGS:The heart is slightly larger than before, now upper normal in transverse dimension. Interval increase in mild interstitial prominence in both lower lobes without airspace consolidation or pleural fluid.IMPRESSION:Slight nonspecific increase in bibasal interstitial prominence may be congestive or inflammatory. Follow-up suggested as clinically appropriate.THIS IS AN ELECTRONICALLY VERIFIED FINAL REPORT03/21/2023 12:08 PM - Electronically signed by Talib David MD
[2023-03-21 12:19] LABS: ALANINE AMINOTRANSFERASE 17 Units/L (12-78); ALBUMIN 2.8 g/dL (3.4-5.0); ALKALINE PHOSPHATASE 77 Units/L (46-116); ASPARTATE AMINO TRANSFERASE 13 Units/L (15-37); BLOOD UREA NITROGEN 10 mg/dL (7-18); CALCIUM 8.9 mg/dL (8.5-10.1); CARBON DIOXIDE 28.8 mmol/L (21-32); CHLORIDE 98 mmol/L (98-107); COR CA(FOR HYPOALB) 9.9 mg/dL (8.5-10.1); COR NA(FOR HYPERGLY) 135 mmol/L (136-145); CREATININE 0.88 mg/dL (0.70-1.30); GLUCOSE 127 mg/dL (65-99); LIPASE 19 Units/L (16-77); POTASSIUM 3.9 mmol/L (3.5-5.1); SODIUM 134 mmol/L (136-145); TOTAL PROTEIN 8.4 g/dL (6.4-8.2); eGFR NON BLACK RACES > 60 (>60)
[2023-03-21] MEDS ORDERED: ROCEPHIN VIAL 1 GRAM IVP ONE (13:30)
[2023-03-21] MEDS ORDERED: ROCEPHIN VIAL 1 GRAM ONE (13:32)
[2023-03-21] MEDS ORDERED: OMNIPAQUE 350 mg/mL 100 mL BTL 100 ML ONE (13:33)
[2023-03-21 14:05] LABS: BILIRUBIN,URINE NEGATIVE (NEGATIVE); BLOOD/HEMOGLOBIN,URINE 2+ (NEGATIVE); GLUCOSE, URINE NEGATIVE (NEGATIVE); KETONES,URINE 3+ (NEGATIVE); LEUKOCYTE ESTERASE ,URINE NEGATIVE (NEGATIVE); NITRITES,URINE NEGATIVE (NEGATIVE); PROTEIN,URINE 3+ (NEGATIVE); UROBILINOGEN,URINE 2+ (NORMAL)
[2023-03-21 14:26] LABS: APPEARANCE,URINE CLEAR (CLEAR); COLOR,URINE DARK YELLOW (YELLOW)
[2023-03-21 14:27] LABS: BACTERIA,URINE 1+ /HPF (NEGATIVE); RBC,URINE 0-2 /HPF (0-3); SQUAMOUS EPITHELIAL CELL,UR FEW /HPF (NEGATIVE)
[2023-03-21] MEDS ORDERED: LOPRESSOR INJ 5 MG AMP IVP ONE (14:32)
--- NOTE | 2023-03-21 14:33 | CT ---
EXAM:CT PULMONARY ANGIOGRAM CHEST WITH CONTRAST (PE PROTOCOL)HISTORY:DYSPNEA, LOW PULSE OX;COMPARISON:None.TECHNIQUE:Axial CT images were obtained through the chest after the intravenous administration of contrast. Coronal reformatted images were included. Maximum intensity projection (MIP) images were performed per pulmonary angiogram protocol.Informed written consent was obtained prior to contrast administration.All CT scans at this facility use dose modulation, iterative reconstruction, and/or weight based dosing when appropriate to reduce radiation dose to as low as reasonably achievable.FINDINGS:HEART AND PULMONARY ARTERIES: Bolus timing is suboptimal. No large pulmonary emboli are detected at this time.SUPPORT DEVICES: NoneLYMPH NODES: No pathologically enlarged nodes.LUNGS AND PLEURA: Lungs show fairly extensive airspace disease predominant in the lung bases but also affecting the upper lobes with florid tree-in-bud nodularity.AIRWAYS: NormalUPPER ABDOMEN: NormalBONES: NormalIMPRESSION:Multifocal pneumonia suspected. Consolidation is worst in the lower lobes with a patchy airspace disease in the upper lobes bilaterally with associated tree-in-bud nodularity favoring infectious process. Atypical organisms are considered.No clear evidence of large pulmonary emboli. Bullous timing is suboptimal for evaluation of the smaller segmental branches.THIS IS AN ELECTRONICALLY VERIFIED FINAL REPORT03/21/2023 2:27 PM - Electronically signed by Hernandez Vidales MD
[2023-03-21] MEDS ORDERED: LOPRESSOR INJ 5 MG AMP ONE (14:41)
[2023-03-21] MEDS ORDERED: NORCO 7.5/325 MG TAB PO ONE (15:31)
[2023-03-21] MEDS ORDERED: NORCO 7.5/325 MG TAB ONE (15:33)
[2023-03-21] MEDS ORDERED: CONSULT PHARMACY - POTASSIUM & MAGNESIUM XX SCH (16:25)
[2023-03-21 16:48] VITALS: BMI 35.2
[2023-03-21] MEDS: ROCEPHIN VIAL 1 GRAM 1 G in NS 100 ML IV 100 ML IV SCH (16:57)
[2023-03-21] MEDS ORDERED: TYLENOL 325 MG TAB PO PRN (17:20)
[2023-03-21 17:25] LABS: ABG ALLEN TEST POS; ABG BASE EXCESS 0.6 mmol/L (-2.0-2.0); ABG HCO3 24.5 mmol/L (22-26)
[2023-03-21] MEDS ORDERED: CATAPRES TAB 0.1 MG PO ONE (17:36)
[2023-03-21] MEDS ORDERED: NORVASC TAB 5 MG PO ONE (17:41)
--- NOTE | 2023-03-21 17:52 | DR.CONSULT ---
CONSULT Consultation for Day of: Date: 03/21/23 Chief Complaint Chief Complaint: ccc, sob, fever Allergies Allergies Allergy/AdvReac Type Severity Reaction Status Date / Time No Known Drug Allergies Allergy Verified 03/21/23 15:11 History of Present Illness History of Present Illness: 47-year-old male presents for evaluation. Became ill last week, started with GI bug, that improved. Developed a cough last Monday, approximately 6 days ago. Was having generalized muscle aches, chills, low-grade temp. symptoms overall has improved except for the cough, is non productive. Having slight chest discomfort, which she feels is from coughing. Any worsening shortness of breath. Patient is a diabetic, blood sugar this a.m. 109. Has had slight nausea, no vomiting or diarrhea. Has normal urinary function. No leg pain, no leg swelling. Pt has PMH of HTN and DM, normally controlled on home medication Past Medical History Past Medical History: Diabetes and Hypertension Family History Family Medical History: Hypertension Social History Does patient currently use any type of tobacco product: No Have you used tobacco products in the last 12 months: No Type of Tobacco Use: None Does any household member use tobacco: No Alcohol Use: None Drug Use: None Medications Home Medications: No Known Drug Allergies Allergy (Verified 03/21/23 15:11) CONTINUE taking the following medications amlodipine 5 mg tablet 5 mg PO QPM 03/21/23 [History] insulin glargine 100 unit/mL (3 mL) subcutaneous pen (Basaglar KwikPen U-100 Insulin) 20 unit subcut BID 03/21/23 [History] metformin 500 mg tablet,extended release 24 hr 500 mg PO BID 03/21/23 [History] Review of Systems Constitutional: Fever, Chills and Malaise Eyes: No Symptoms Reported ENT: Nose Discharge Respiratory: Cough and Shortness of Breath Cardiovascular: Light [place]adedness Gastrointestinal: Nausea, Vomiting and Diarrhea Genitourinary: No Symptoms Reported Musculoskeletal: Other (multiple myalgias) Skin: No Symptoms Reported Neurological: No Symptoms Reported Physical Exam Vital Signs: Vital Signs Temperature 101.1 F Temperature 98.3 F Pulse Rate [Bilateral Radial] 133 Pulse Rate 128 Pulse Rate 129 Pulse Rate 127 Pulse Rate 128 Pulse Rate 127 Pulse Rate 127 Pulse Rate 126 Pulse Rate 126 Pulse Rate 118 Pulse Rate 113 Pulse Rate 113 Pulse Rate 126 Pulse Rate 124 Pulse Rate 127 Pulse Rate 130 Pulse Rate 121 Pulse Rate 117 Pulse Rate 121 Pulse Rate 112 Pulse Rate 114 Pulse Rate 113 Pulse Rate 118 Pulse Rate 123 Pulse Rate 121 Pulse Rate 126 Pulse Rate 128 Pulse Rate 129 Respiratory Rate 34 Respiratory Rate 30 Respiratory Rate 38 Respiratory Rate 36 Respiratory Rate 52 Respiratory Rate 18 Respiratory Rate 34 Respiratory Rate 40 Respiratory Rate 44 Respiratory Rate 43 Respiratory Rate 27 Respiratory Rate 37 Respiratory Rate 36 Respiratory Rate 38 Respiratory Rate 35 Respiratory Rate 34 Respiratory Rate 31 Respiratory Rate 39 Respiratory Rate 29 Respiratory Rate 30 Respiratory Rate 26 Respiratory Rate 27 Respiratory Rate 34 Respiratory Rate 31 Respiratory Rate 33 Respiratory Rate 35 Respiratory Rate 25 Respiratory Rate 34 Respiratory Rate 18 Blood Pressure [Left Arm] 181/93 Blood Pressure 180/91 Blood Pressure 183/102 Blood Pressure 189/107 Blood Pressure 180/105 Blood Pressure 161/72 Blood Pressure 190/92 Blood Pressure 202/105 Blood Pressure 199/108 Blood Pressure 187/102 Blood Pressure 187/102 Blood Pressure 164/79 Blood Pressure 187/97 Blood Pressure 183/96 Blood Pressure 176/99 Blood Pressure 166/93 Blood Pressure 177/104 Blood Pressure 180/103 Blood Pressure 145/94 O2 Sat by Pulse Oximetry 92 O2 Sat by Pulse Oximetry 92 O2 Sat by Pulse Oximetry 92 O2 Sat by Pulse Oximetry 92 O2 Sat by Pulse Oximetry 91 O2 Sat by Pulse Oximetry 92 O2 Sat by Pulse Oximetry 92 O2 Sat by Pulse Oximetry 90 O2 Sat by Pulse Oximetry 98 O2 Sat by Pulse Oximetry 96 O2 Sat by Pulse Oximetry 95 O2 Sat by Pulse Oximetry 95 O2 Sat by Pulse Oximetry 95 O2 Sat by Pulse Oximetry 95 O2 Sat by Pulse Oximetry 96 O2 Sat by Pulse Oximetry 96 O2 Sat by Pulse Oximetry 90 O2 Sat by Pulse Oximetry 90 O2 Sat by Pulse Oximetry 89 O2 Sat by Pulse Oximetry 92 O2 Sat by Pulse Oximetry 91 O2 Sat by Pulse Oximetry 91 O2 Sat by Pulse Oximetry 91 O2 Sat by Pulse Oximetry 91 O2 Sat by Pulse Oximetry 90 O2 Sat by Pulse Oximetry 90 O2 Sat by Pulse Oximetry 89 O2 Sat by Pulse Oximetry 84 Oriented: Normal Eyes: Normal Ear: Normal Nose: Normal Throat: Normal Respiratory: Wheezes Throughout Cardiovascular: Tachycardia : Normal Auscultation: Bowel Sounds: Normal Palpation: Normal Tenderness: Normal Skin: Normal Musculoskeletal: Normal Psychiatric: Anxiety Affect: Anxious Speech Pattern: Clear and Appropriate Plan (1) Bilateral pneumonia: Status: Acute Narrative Support Text: ADMIT, ICU SUPPLEMENTAL O2 AND CARDIAC MONITORING IV ATBX, BC AND SPUTUM CULTURE ON ADMISSION VIRAL RESP SWAB, IV SOLU MEDROL SSI CONTROL, BP CONTROL ABG ON ADMISSION HYPERTENSIVE PROTOCOL FEVER CONTROL (2) Hypoxia: Status: Acute (3) Hypertension: Status: Acute (4) Diabetes: Status: Acute
[2023-03-21] MEDS: ZITHROMAX INJ 500 MG VIAL 500 MG in D5W 250 ML IV 250 ML IV SCH (17:57)
[2023-03-21] MEDS: NS 1,000 ML IV 1,000 ML IV SCH (17:57)
[2023-03-21] MEDS ORDERED: NS 1,000 ML IV 1,000 ML IV SCH (18:00)
[2023-03-21] MEDS: XOPENEX 1.25 MG/3 ML NEBULE NEB SCH (20:00)
[2023-03-21] MEDS: PULMICORT NEB TX 0.5 MG NEB SCH (20:00)
[2023-03-21] MEDS: GLUCOPHAGE XR 24-HR PO SCH (20:16)
[2023-03-21] MEDS: NORVASC TAB 5 MG PO SCH (20:16)
[2023-03-21] MEDS: ZYVOX 600MG IV 600 MG/300 ML BAG IV SCH (20:16)
[2023-03-21] MEDS: LANTUS SC SCH (20:17)
[2023-03-21] MEDS: TORADOL 30 MG VIAL IVP PRN (20:21)
[2023-03-21] MEDS ORDERED: PATIENT'S HOME MEDICATION (Insulin Glargine [Basaglar Kwikpen U-100 Insulin] 100 unit/mL ( SUBCUT SCH (21:00)
[2023-03-21] MEDS: SOLU-Medrol 125 MG VIAL IVP SCH (21:05)
[2023-03-21] MEDS ORDERED: NovoLIN R (or HumuLIN R) SUBCUT PRN (22:17)
[2023-03-21] MEDS: ROBITUSSIN DM PO PRN (22:26)
[2023-03-22] MEDS: SOLU-Medrol 125 MG VIAL IVP SCH ×2 (05:12→15:00)
[2023-03-22 05:34] LABS: BASOPHILS % (AUTO) 0 % (0.2-1.0); HEMOGLOBIN 13.8 g/dL (13.5-18.0); LYMPHOCYTES # (AUTO) 0.8 X10^3/uL (1.3-2.9); LYMPHOCYTES % (AUTO) 6.4 % (21.0-51.0); MEAN CORPUSCULAR HEMOGLOBIN 27.7 pg (27.0-34.0); MEAN CORPUSCULAR HGB CONC 32.8 g/dL (33.0-35.0); MEAN CORPUSCULAR VOLUME 84.4 fL (80.0-100.0); MEAN PLATELET VOLUME 10.1 fL (7.4-11.0); MONOCYTES # (AUTO) 0.3 x10^3/uL (0.3-0.8); MONOCYTES % (AUTO) 2.2 % (0.0-13.0); NEUTROPHILS # (AUTO) 11.4 x10^3/uL (2.2-4.8); NEUTROPHILS % (AUTO) 91.4 % (42.0-75.0); PLATELET COUNT 334 X10^3/uL (150.0-450.0); RED BLOOD COUNT 4.97 X10^6/uL (4.7-6.0); RED CELL DISTRIBUTION WIDTH 14.6 % (11.6-16.5); WHITE BLOOD COUNT 12.5 X10^3/uL (3.6-10.0)
[2023-03-22 05:47] LABS: ALANINE AMINOTRANSFERASE 19 Units/L (12-78); ALBUMIN 2.5 g/dL (3.4-5.0); ALKALINE PHOSPHATASE 82 Units/L (46-116); ASPARTATE AMINO TRANSFERASE 14 Units/L (15-37); BLOOD UREA NITROGEN 10 mg/dL (7-18); CALCIUM 8.6 mg/dL (8.5-10.1); CARBON DIOXIDE 28.3 mmol/L (21-32); CHLORIDE 100 mmol/L (98-107); COR CA(FOR HYPOALB) 9.8 mg/dL (8.5-10.1); COR NA(FOR HYPERGLY) 136 mmol/L (136-145); CREATININE 0.72 mg/dL (0.70-1.30); GLUCOSE 158 mg/dL (65-99); POTASSIUM 4.5 mmol/L (3.5-5.1); SODIUM 135 mmol/L (136-145); TOTAL PROTEIN 8.1 g/dL (6.4-8.2); eGFR NON BLACK RACES > 60 (>60)
[2023-03-22 06:09] LABS: BAND NEUTROPHILS % 1 % (0-10); PLATELET MORPHOLOGY COMMENT NORMAL (NORMAL)
--- NOTE | 2023-03-22 06:50 | RAD ---
EXAM:Two-view chestHISTORY:Follow-up bilateral pneumoniaCOMPARISON:03/21/2019 chest x-ray and CTA chestFINDINGS:Heart size is normal. [place] are normal. Lungs are well inflated. Patchy infiltrates are present in the perihilar right upper lobe, medial right lower lobe and retrocardiac left lower lobe. It is of note that the infiltrates are much better visualized on the CT and are more extensive than visualized on conventional chest x-ray. No pleural effusions are identified. Bony thorax is unremarkable.IMPRESSION:Multifocal pneumonia not as well demonstrated on plain film as on the recent CT.THIS IS AN ELECTRONICALLY VERIFIED FINAL REPORT03/22/2023 6:40 AM - Electronically signed by Rosalino Ribeiro MD
[2023-03-22] MEDS: ZYVOX 600MG IV 600 MG/300 ML BAG IV SCH ×3 (08:00→20:58)
[2023-03-22] MEDS: NS 1,000 ML IV 1,000 ML IV SCH ×2 (08:00→21:07)
[2023-03-22] MEDS: PULMICORT NEB TX 0.5 MG NEB SCH ×2 (08:42→21:00)
[2023-03-22] MEDS: XOPENEX 1.25 MG/3 ML NEBULE NEB SCH ×4 (08:42→21:00)
[2023-03-22] MEDS ORDERED: LASIX IVP SCH (09:00)
[2023-03-22] MEDS: ZITHROMAX INJ 500 MG VIAL 500 MG in D5W 250 ML IV 250 ML IV SCH (09:44)
[2023-03-22] MEDS: GLUCOPHAGE XR 24-HR PO SCH ×2 (09:49→20:55)
[2023-03-22] MEDS: ROCEPHIN VIAL 1 GRAM 1 G in NS 100 ML IV 100 ML IV SCH ×2 (09:49→09:50)
[2023-03-22 10:00] LABS: ABG BASE EXCESS 1.7 mmol/L (-2.0-2.0); ABG HCO3 25.8 mmol/L (22-26)
[2023-03-22 10:01] LABS: ABG ALLEN TEST POS
[2023-03-22] MEDS: LANTUS SC SCH ×2 (10:21→20:57)
--- NOTE | 2023-03-22 17:28 | PCM.PROG ---
Progress Note Progress Note for Day of Date of Exam: 03/22/23 Subjective Subjective: PT IS 47 BM, ER ADMISSION WITH BILATERAL PNEUMONIA WITH HYPOXIA. PT HAD A REPEAT CXR THIS AM WITH CONTINUED PNEUMONIA. PT IS CURRENTLY ON OXY MASK FOR SUPPLEMENTATION. PLAN TO OBTAIN ABG THIS AM AND ATTEMPT NASAL CANNULA. PT HOME MEDICATIONS HAVE BEEN VERIFIED. PT REPORTS HE HAS NOT HAD ANY GI SYMPTOMS SINCE ONSET OF ILLNESS. BS AT HOME HAS BEEN UNDER 100 WITH INSULIN THERAPY. PT CO FEELING WEAK AND FATIGUE, DENIES ANY CHEST PAIN THIS AM ON EXAM. LABS AND XRAY REVIEWED WITH PT. BP 151/81 THIS AM. IMPROVING HYPONATREMIA WITH NA 135, WBC 12.5, BUN10 CREAT 0.72 Past Medical Family Social History Allergies: Allergies No Known Drug Allergies Allergy (Verified 03/21/23 15:11) Vital Signs and I&O's Vital Signs: Vital Signs Temperature 98.0 F Pulse Rate 104 Pulse Rate 90 Pulse Rate 93 Pulse Rate 98 Pulse Rate 107 Pulse Rate 114 Respiratory Rate 14 Respiratory Rate 15 Respiratory Rate 19 Respiratory Rate 19 Respiratory Rate 19 Respiratory Rate 18 Blood Pressure 156/81 Blood Pressure 173/81 Blood Pressure 161/89 Blood Pressure 158/86 Blood Pressure 161/84 Blood Pressure 167/86 O2 Sat by Pulse Oximetry 91 O2 Sat by Pulse Oximetry 90 O2 Sat by Pulse Oximetry 93 O2 Sat by Pulse Oximetry 94 O2 Sat by Pulse Oximetry 95 O2 Sat by Pulse Oximetry 92 Intake and Output: Intake & Output 03/20/23 03/21/23 03/22/23 03/23/23 11:59 11:59 11:59 11:59 Intake Total 1237 / 1237 1088 / 1088 Output Total 400 / 400 350 / 350 Balance 837 / 837 738 / 738 Physical Exam Oriented: Normal Eyes: Normal Ear: Normal Nose: Normal Throat: Normal Respiratory: Wheezes and Rhonchi Cardiovascular: Tachycardia : Normal Auscultation: Bowel Sounds: Normal Tenderness: Normal Skin: Normal Musculoskeletal: Normal Psychiatric: Anxiety Affect: Anxious Speech Pattern: Clear and Appropriate Laboratory and Diagnostics 03/22/23 04:30 03/22/23 04:30 Labs: 03/21/23 16:37 Sputum - Expectorated Sputum Sputum Culture - Preliminary 03/21/23 16:37 Sputum - Expectorated Sputum - Final Laboratory WBC 12.5 X10^3/uL (3.6-10.0) H 03/22/23 04:30 RBC 4.97 X10^6/uL (4.7-6.0) 03/22/23 04:30 Hgb 13.8 g/dL (13.5-18.0) 03/22/23 04:30 Hct 42.0 % (42.0-54.0) 03/22/23 04:30 MCV 84.4 fL (80.0-100.0) 03/22/23 04:30 MCH 27.7 pg (27.0-34.0) 03/22/23 04:30 MCHC 32.8 g/dL (33.0-35.0) L 03/22/23 04:30 RDW 14.6 % (11.6-16.5) 03/22/23 04:30 Plt Count 334 X10^3/uL (150.0-450.0) 03/22/23 04:30 Plt Count Comment Adequate (ADEQUATE) 03/22/23 04:30 MPV 10.1 fL (7.4-11.0) 03/22/23 04:30 Neut % (Auto) 91.4 % (42.0-75.0) H 03/22/23 04:30 Lymph % (Auto) 6.4 % (21.0-51.0) L 03/22/23 04:30 [place] % (Auto) 2.2 % (0.0-13.0) 03/22/23 04:30 Eos % (Auto) 0.0 % (0.9-2.9) L 03/22/23 04:30 Baso % (Auto) 0 % (0.2-1.0) L 03/22/23 04:30 Neut # (Auto) 11.4 x10^3/uL (2.2-4.8) H 03/22/23 04:30 Lymph # (Auto) 0.8 X10^3/uL (1.3-2.9) L 03/22/23 04:30 [place] # (Auto) 0.3 x10^3/uL (0.3-0.8) 03/22/23 04:30 Eos # (Auto) 0.0 x10^3/uL (0.0-0.2) 03/22/23 04:30 Baso # (Auto) 0.0 X10^3/uL (0.0-0.1) 03/22/23 04:30 Absolute Nucleated RBC 0.1 /100WBC 03/22/23 04:30 Total Counted 100 03/22/23 04:30 Neutrophils % (Manual) 77 % (39-76) H 03/22/23 04:30 Band Neutrophils % 1 % (0-10) 03/22/23 04:30 Lymphocytes % (Manual) 21 % (13-43) 03/22/23 04:30 Monocytes % (Manual) 1 % (4-9) L 03/22/23 04:30 Plt Morphology Comment Normal (NORMAL) 03/22/23 04:30 RBC Morphology Normal (NORMAL) 03/22/23 04:30 D-Dimer 0.74 ug/ml (0.0-0.57) H 03/21/23 11:30 Sample Site Rrad 03/22/23 09:55 ABG pH 7.440 (7.35-7.45) 03/22/23 09:55 ABG pCO2 38.0 mmHg (35.0-45.0) 03/22/23 09:55 ABG pO2 53.0 mmHg (80.0-100.0) L 03/22/23 09:55 ABG HCO3 25.8 mmol/L (22-26) 03/22/23 09:55 ABG O2 Saturation 88.0 % (90-100) L 03/22/23 09:55 ABG Base Excess 1.7 mmol/L (-2.0-2.0) 03/22/23 09:55 [place] Test Pos 03/22/23 09:55 A-a Gradient 156.0 mmHg 03/22/23 09:55 FiO2 36.0 03/22/23 09:55 Blood Gas Comments Pt ritu well elj cdn 03/22/23 09:55 Sodium 135 mmol/L (136-145) L 03/22/23 04:30 Corrected Sodium 136 mmol/L (136-145) 03/22/23 04:30 Potassium 4.5 mmol/L (3.5-5.1) 03/22/23 04:30 Chloride 100 mmol/L (98-107) 03/22/23 04:30 Carbon Dioxide 28.3 mmol/L (21-32) 03/22/23 04:30 BUN 10 mg/dL (7-18) 03/22/23 04:30 Creatinine 0.72 mg/dL (0.70-1.30) 03/22/23 04:30 Est GFR (MDRD) Af Amer > 60 (>60) 03/22/23 04:30 Est GFR (MDRD) Non-Af > 60 (>60) 03/22/23 04:30 Glucose 158 mg/dL (65-99) H 03/22/23 04:30 POC Glucose (mg/dL) 150 mg/dL (65-99) H 03/22/23 16:45 Lactic Acid 1.1 mmol/L (0.4-2.0) 03/21/23 11:30 Calcium 8.6 mg/dL (8.5-10.1) 03/22/23 04:30 Corrected Calcium 9.8 mg/dL (8.5-10.1) 03/22/23 04:30 Total Bilirubin 0.50 mg/dL (0.2-1.0) 03/22/23 04:30 AST 14 Units/L (15-37) L 03/22/23 04:30 ALT 19 Units/L (12-78) 03/22/23 04:30 Alkaline Phosphatase 82 Units/L (46-116) 03/22/23 04:30 Troponin I High Sens 5.0 ng/L (4.0-60.0) 03/21/23 11:30 B-Natriuretic Peptide 9.2 pg/mL (0-79) 03/21/23 11:30 Total Protein 8.1 g/dL (6.4-8.2) 03/22/23 04:30 Albumin 2.5 g/dL (3.4-5.0) L 03/22/23 04:30 Globulin 5.6 g/dL (2.5-4.5) H 03/22/23 04:30 Albumin/Globulin Ratio 0.4 Ratio (1.1-2.1) L 03/22/23 04:30 Lipase 19 Units/L (16-77) 03/21/23 11:30 Specimen Type Clean catch urine 03/21/23 13:43 Urine Color Dark yellow (YELLOW) 03/21/23 13:43 Urine Appearance Clear (CLEAR) 03/21/23 13:43 Urine pH 6.0 (5.0 - 8.0) 03/21/23 13:43 Ur Specific [place] 1.025 (1.000-1.030) 03/21/23 13:43 Urine Protein 3+ (NEGATIVE) 03/21/23 13:43 Urine Glucose (UA) Negative (NEGATIVE) 03/21/23 13:43 Urine Ketones 3+ (NEGATIVE) 03/21/23 13:43 Urine Blood 2+ (NEGATIVE) 03/21/23 13:43 Urine Nitrite Negative (NEGATIVE) 03/21/23 13:43 Urine Bilirubin Negative (NEGATIVE) 03/21/23 13:43 Urine Urobilinogen 2+ (NORMAL) 03/21/23 13:43 Ur Leukocyte Esterase Negative (NEGATIVE) 03/21/23 13:43 Urine RBC 0-2 /HPF (0-3) 03/21/23 13:43 Urine WBC 0-2 /HPF (0-5) 03/21/23 13:43 Ur Squamous Epith Cells Few /HPF (NEGATIVE) 03/21/23 13:43 Urine Bacteria 1+ /HPF (NEGATIVE) 03/21/23 13:43 Urine Mucus Few /HPF (NEGATIVE) 03/21/23 13:43 Ur Culture Indicated? No/not indicated 03/21/23 13:43 SARS-CoV-2 (PCR) Negative (NEGATIVE) 03/21/23 11:34 Influenza Type A (PCR) Negative (NEGATIVE) 03/21/23 11:34 Influenza Type B (PCR) Negative (NEGATIVE) 03/21/23 11:34 RSV (PCR) Negative (NEGATIVE) 03/21/23 11:34 Plan (1) Bilateral pneumonia: Status: Acute Narrative Support Text: IV ATBX, RESP THERAPY, SUPPLEMENTAL O2 IV HYDRATION, I&S, CULTURES OBTAINED ON ADMISSION BP AND BS CONTROL, REPEAT AM CXR AND ABG (2) Hypoxia: Status: Acute (3) Hypertension: Status: Acute (4) Diabetes: Status: Acute
[2023-03-22] MEDS: COZAAR PO SCH (18:13)
[2023-03-22] MEDS: NORVASC TAB 5 MG PO SCH (20:55)
[2023-03-22] MEDS: ROBITUSSIN DM PO PRN (20:59)
[2023-03-22] MEDS: SNACK - Diabetic Appropriate PO SCH (21:07)
[2023-03-22] MEDS: APRESOLINE INJ 20 MG VIAL IVP PRN (23:12)
[2023-03-23] MEDS: CATAPRES TAB 0.1 MG PO PRN (00:04)
[2023-03-23] MEDS: TORADOL 30 MG VIAL IVP PRN (00:34)
--- NOTE | 2023-03-23 05:17 | RAD ---
EXAM: CHEST, 1 VIEW HISTORY: PNEUMONIA ; HTN, DM COMPARISON: 03/22/2023 FINDINGS: The cardiomediastinal silhouette is stable. Similar faint bilateral opacities. No pneumothorax or effusion. No acute osseous abnormality. IMPRESSION: Similar faint bilateral opacities. THIS IS AN ELECTRONICALLY VERIFIED FINAL REPORT 03/23/2023 5:13 AM - Electronically signed by Rosalino Ribeiro MD
[2023-03-23 05:34] LABS: BASOPHILS % (AUTO) 0.1 % (0.2-1.0); HEMATOCRIT 41.7 % (42.0-54.0); HEMOGLOBIN 13.9 g/dL (13.5-18.0); LYMPHOCYTES # (AUTO) 0.8 X10^3/uL (1.3-2.9); LYMPHOCYTES % (AUTO) 3.9 % (21.0-51.0); MEAN CORPUSCULAR HEMOGLOBIN 27.7 pg (27.0-34.0); MEAN CORPUSCULAR HGB CONC 33.3 g/dL (33.0-35.0); MEAN CORPUSCULAR VOLUME 83.4 fL (80.0-100.0); MEAN PLATELET VOLUME 9.4 fL (7.4-11.0); MONOCYTES % (AUTO) 4.9 % (0.0-13.0); NEUTROPHILS # (AUTO) 19.5 x10^3/uL (2.2-4.8); NEUTROPHILS % (AUTO) 91.1 % (42.0-75.0); PLATELET COUNT 428 X10^3/uL (150.0-450.0); RED CELL DISTRIBUTION WIDTH 14.3 % (11.6-16.5); WHITE BLOOD COUNT 21.5 X10^3/uL (3.6-10.0)
[2023-03-23 05:48] LABS: ALANINE AMINOTRANSFERASE 18 Units/L (12-78); ALBUMIN 2.4 g/dL (3.4-5.0); ALKALINE PHOSPHATASE 78 Units/L (46-116); ASPARTATE AMINO TRANSFERASE 11 Units/L (15-37); BLOOD UREA NITROGEN 19 mg/dL (7-18); CALCIUM 8.9 mg/dL (8.5-10.1); CARBON DIOXIDE 28.1 mmol/L (21-32); CHLORIDE 102 mmol/L (98-107); COR CA(FOR HYPOALB) 10.2 mg/dL (8.5-10.1); COR NA(FOR HYPERGLY) 139 mmol/L (136-145); CREATININE 0.84 mg/dL (0.70-1.30); GLUCOSE 164 mg/dL (65-99); POTASSIUM 3.8 mmol/L (3.5-5.1); SODIUM 137 mmol/L (136-145); TOTAL PROTEIN 7.8 g/dL (6.4-8.2); eGFR NON BLACK RACES > 60 (>60)
[2023-03-23 05:54] LABS: BAND NEUTROPHILS % 2 % (0-10)
[2023-03-23 05:55] LABS: PLATELET MORPHOLOGY COMMENT NORMAL (NORMAL); TARGET CELLS PRESENT
[2023-03-23] MEDS ORDERED: CONSULT PHARMACY - POTASSIUM & MAGNESIUM XX SCH (07:00)
[2023-03-23] MEDS ORDERED: K-DUR TAB 20 MEQ PO SCH (09:00)
[2023-03-23] MEDS ORDERED: LASIX IVP SCH (09:00)
[2023-03-23] MEDS: PULMICORT NEB TX 0.5 MG NEB SCH ×2 (09:28→21:35)
[2023-03-23] MEDS: XOPENEX 1.25 MG/3 ML NEBULE NEB SCH ×4 (09:28→21:35)
[2023-03-23] MEDS: ROCEPHIN VIAL 1 GRAM 1 G in NS 100 ML IV 100 ML IV SCH (09:44)
[2023-03-23] MEDS: ZITHROMAX INJ 500 MG VIAL 500 MG in D5W 250 ML IV 250 ML IV SCH (10:00)
[2023-03-23] MEDS: GLUCOPHAGE XR 24-HR PO SCH ×2 (10:00→20:06)
[2023-03-23] MEDS: ZYVOX 600MG IV 600 MG/300 ML BAG IV SCH ×2 (10:00→20:06)
[2023-03-23] MEDS: COZAAR PO SCH (10:00)
[2023-03-23] MEDS: LANTUS SC SCH ×2 (10:20→20:13)
[2023-03-23] MEDS: NS 1,000 ML IV 1,000 ML IV SCH ×2 (12:00→17:41)
[2023-03-23] MEDS: NORVASC TAB 5 MG PO SCH (20:06)
[2023-03-23] MEDS: SNACK - Diabetic Appropriate PO SCH (20:12)
[2023-03-24] MEDS: NS 1,000 ML IV 1,000 ML IV SCH ×2 (02:57→16:49)
[2023-03-24] MEDS: APRESOLINE INJ 20 MG VIAL IVP PRN (05:16)
[2023-03-24 05:31] LABS: BASOPHILS % (AUTO) 0.2 % (0.2-1.0); EOSINOPHILS % (AUTO) 0.1 % (0.9-2.9); HEMATOCRIT 41.3 % (42.0-54.0); HEMOGLOBIN 13.6 g/dL (13.5-18.0); LYMPHOCYTES # (AUTO) 1.8 X10^3/uL (1.3-2.9); LYMPHOCYTES % (AUTO) 10.5 % (21.0-51.0); MEAN CORPUSCULAR HEMOGLOBIN 27.7 pg (27.0-34.0); MEAN CORPUSCULAR HGB CONC 32.9 g/dL (33.0-35.0); MEAN CORPUSCULAR VOLUME 84.3 fL (80.0-100.0); MEAN PLATELET VOLUME 9.5 fL (7.4-11.0); MONOCYTES # (AUTO) 1.3 x10^3/uL (0.3-0.8); MONOCYTES % (AUTO) 7.7 % (0.0-13.0); NEUTROPHILS # (AUTO) 14.2 x10^3/uL (2.2-4.8); NEUTROPHILS % (AUTO) 81.5 % (42.0-75.0); PLATELET COUNT 453 X10^3/uL (150.0-450.0); RED CELL DISTRIBUTION WIDTH 14.6 % (11.6-16.5); WHITE BLOOD COUNT 17.4 X10^3/uL (3.6-10.0)
[2023-03-24 05:39] LABS: ALANINE AMINOTRANSFERASE 17 Units/L (12-78); ALBUMIN 2.3 g/dL (3.4-5.0); ALKALINE PHOSPHATASE 82 Units/L (46-116); ASPARTATE AMINO TRANSFERASE 10 Units/L (15-37); BLOOD UREA NITROGEN 12 mg/dL (7-18); CALCIUM 8.6 mg/dL (8.5-10.1); CARBON DIOXIDE 27.2 mmol/L (21-32); CHLORIDE 104 mmol/L (98-107); COR NA(FOR HYPERGLY) 140 mmol/L (136-145); GLUCOSE 116 mg/dL (65-99); MAGNESIUM 1.9 mg/dL (2.0-2.9); POTASSIUM 3.4 mmol/L (3.5-5.1); SODIUM 140 mmol/L (136-145); TOTAL PROTEIN 7.3 g/dL (6.4-8.2); eGFR NON BLACK RACES > 60 (>60)
--- NOTE | 2023-03-24 05:40 | RAD ---
EXAM:FRONTAL AND LATERAL VIEW CHEST X-RAYHISTORY:Possible pneumonia with hypoxia and shortness of breathCOMPARISON:03/23/2023FINDINGS:Retr ocardiac left lower lobe consolidation with air bronchograms is seen in the lateral view overlying the lower thoracic spine.The heart size is within normal limits.The mediastinum is unremarkable.There is no evidence of pleural effusion or gross pneumothorax.The trachea is midline.IMPRESSION:1. Retrocardiac left lower lobe consolidation with air bronchograms is seen in the lateral view overlying the lower thoracic spine. This finding was not present on the prior examination. This therefore most likely represents acute airspace disease such as infection. Follow-up to complete resolution may be obtained as clinically indicated.THIS IS AN ELECTRONICALLY VERIFIED FINAL REPORT03/24/2023 5:36 AM - Electronically signed by Jared Unger MD
[2023-03-24 05:54] LABS: ABG ALLEN TEST POS; ABG BASE EXCESS 6.3 mmol/L (-2.0-2.0); ABG HCO3 29.4 mmol/L (22-26)
[2023-03-24] MEDS ORDERED: CONSULT PHARMACY - POTASSIUM & MAGNESIUM XX SCH (06:00)
[2023-03-24 06:21] LABS: PLATELET MORPHOLOGY COMMENT NORMAL (NORMAL)
[2023-03-24] MEDS ORDERED: K-DUR TAB 20 MEQ PO SCH (09:00)
[2023-03-24] MEDS ORDERED: COZAAR PO SCH ×2 (09:00→23:00)
[2023-03-24] MEDS: MUCOMYST 20% 200 MG/ML NEB SCH ×5 (09:11→20:22)
[2023-03-24] MEDS: XOPENEX 1.25 MG/3 ML NEBULE NEB SCH ×4 (09:11→20:22)
[2023-03-24] MEDS: PULMICORT NEB TX 0.5 MG NEB SCH ×2 (09:11→20:22)
[2023-03-24] MEDS: GLUCOPHAGE XR 24-HR PO SCH ×2 (09:14→20:13)
[2023-03-24] MEDS: LANTUS SC SCH ×2 (09:15→20:52)
[2023-03-24] MEDS: MAG-OX TAB PO SCH ×2 (09:15→10:27)
[2023-03-24] MEDS: ZITHROMAX INJ 500 MG VIAL 500 MG in D5W 250 ML IV 250 ML IV SCH (09:15)
[2023-03-24] MEDS: ROCEPHIN VIAL 1 GRAM 1 G in NS 100 ML IV 100 ML IV SCH (09:16)
[2023-03-24] MEDS: ZYVOX 600MG IV 600 MG/300 ML BAG IV SCH ×2 (09:16→20:17)
[2023-03-24] MEDS: CATAPRES TAB 0.1 MG PO PRN (18:22)
[2023-03-24] MEDS: NORVASC TAB 5 MG PO SCH (20:13)
[2023-03-24] MEDS: SNACK - Diabetic Appropriate PO SCH (20:52)
[2023-03-25] MEDS: ROBITUSSIN DM PO PRN (02:13)
[2023-03-25 05:17] LABS: BASOPHILS % (AUTO) 0.3 % (0.2-1.0); EOSINOPHILS # (AUTO) 0.1 x10^3/uL (0.0-0.2); EOSINOPHILS % (AUTO) 0.8 % (0.9-2.9); HEMATOCRIT 40.9 % (42.0-54.0); HEMOGLOBIN 13.4 g/dL (13.5-18.0); LYMPHOCYTES # (AUTO) 1.8 X10^3/uL (1.3-2.9); LYMPHOCYTES % (AUTO) 13.4 % (21.0-51.0); MEAN CORPUSCULAR HEMOGLOBIN 27.9 pg (27.0-34.0); MEAN CORPUSCULAR HGB CONC 32.7 g/dL (33.0-35.0); MEAN CORPUSCULAR VOLUME 85.4 fL (80.0-100.0); MEAN PLATELET VOLUME 9.4 fL (7.4-11.0); MONOCYTES # (AUTO) 0.9 x10^3/uL (0.3-0.8); MONOCYTES % (AUTO) 6.6 % (0.0-13.0); NEUTROPHILS # (AUTO) 10.8 x10^3/uL (2.2-4.8); NEUTROPHILS % (AUTO) 78.9 % (42.0-75.0); PLATELET COUNT 445 X10^3/uL (150.0-450.0); RED BLOOD COUNT 4.79 X10^6/uL (4.7-6.0); RED CELL DISTRIBUTION WIDTH 14.6 % (11.6-16.5); WHITE BLOOD COUNT 13.7 X10^3/uL (3.6-10.0)
[2023-03-25 05:32] LABS: ALANINE AMINOTRANSFERASE 14 Units/L (12-78); ALBUMIN 2.2 g/dL (3.4-5.0); ALKALINE PHOSPHATASE 68 Units/L (46-116); ASPARTATE AMINO TRANSFERASE 9 Units/L (15-37); BLOOD UREA NITROGEN 7 mg/dL (7-18); CALCIUM 8.6 mg/dL (8.5-10.1); CARBON DIOXIDE 29.5 mmol/L (21-32); CHLORIDE 103 mmol/L (98-107); CREATININE 0.69 mg/dL (0.70-1.30); GLUCOSE 109 mg/dL (65-99); MAGNESIUM 2.1 mg/dL (2.0-2.9); SODIUM 140 mmol/L (136-145); TOTAL PROTEIN 6.9 g/dL (6.4-8.2); eGFR NON BLACK RACES > 60 (>60)
--- NOTE | 2023-03-25 05:37 | RAD ---
EXAM:AP chestHISTORY:PneumoniaCOMPARISON: 024FINDINGS:Heart size normal. The lungs are now essentially clear and well-aerated without evidence for consolidation, edema or other acute process. There is slight residual interstitial prominence in the right base.IMPRESSION:Significant improvement in appearance of the chest. See above. No new abnormality noted.THIS IS AN ELECTRONICALLY VERIFIED FINAL REPORT03/25/2023 5:34 AM - Electronically signed by Talib David MD
[2023-03-25] MEDS: NS 1,000 ML IV 1,000 ML IV SCH (05:38)
[2023-03-25] MEDS: CATAPRES TAB 0.1 MG PO PRN (06:08)
[2023-03-25 08:11] VITALS: RESP 22
[2023-03-25] MEDS: LANTUS SC SCH (08:17)
[2023-03-25] MEDS: GLUCOPHAGE XR 24-HR PO SCH (08:17)
[2023-03-25] MEDS: ROCEPHIN VIAL 1 GRAM 1 G in NS 100 ML IV 100 ML IV SCH (08:18)
[2023-03-25] MEDS: ZYVOX 600MG IV 600 MG/300 ML BAG IV SCH (08:55)
[2023-03-25] MEDS: PULMICORT NEB TX 0.5 MG NEB SCH (09:00)
[2023-03-25] MEDS: MUCOMYST 20% 200 MG/ML NEB SCH (09:00)
[2023-03-25] MEDS ORDERED: NORVASC TAB 5 MG PO SCH (09:00)
[2023-03-25] MEDS: XOPENEX 1.25 MG/3 ML NEBULE NEB SCH (09:00)
[2023-03-25 09:04] VITALS: TEMP 97.5
[2023-03-25] MEDS: ZITHROMAX INJ 500 MG VIAL 500 MG in D5W 250 ML IV 250 ML IV SCH (09:55)
[2023-03-25 10:07] VITALS: PULSE 70; O2SAT 96
[2023-03-25 11:11] VITALS: BP 161/93
[2023-03-25] MEDS ORDERED: COZAAR PO SCH (21:00)
== END 2023-03-25 12:30 | disposition home or self-care (01) | DRG 195 ==
LOC: ER 11:00 → ICU 15:14
PROVIDERS: ADMIT Internal Medicine; ATTEND Internal Medicine